=== PATIENT | female | born 1975 | race African-American/Black ===

== ENCOUNTER 2016-07-19 22:06 | Emergency (ER) | payer SELFPAY ==
[~2016-07-19 22:06] MED LIST: HYDR-1348; cephalexin; ciprofloxacin
== END 2016-07-19 22:50 | disposition left against medical advice (07) ==
LOC: ER 22:45
DX: Z04.8 Encounter for examination and observation for other specified reasons (principal); Z53.21 Procedure and treatment not carried out due to patient leaving prior to being seen by health care provider

== ENCOUNTER 2024-01-25 18:43 | Emergency (ER) | payer MEDICAID ==
[~2024-01-25] VITALS: Ht 157.5 cm; Wt 88.0 kg
[2024-01-25 18:45] VITALS: TEMP 98.5; O2SAT 99
[2024-01-25] MEDS ORDERED: IBUPROFEN 600MG TABLET PO ONE (19:15)
[2024-01-25] MEDS ORDERED: CYCLOBENZAPRINE 10MG TABLET PO ONE (19:15)
[2024-01-25 19:55] LABS: BASOPHILS % 0.6 % (0.0-2.0); EOSINOPHILS % 0.2 % (0.0-5.0); HEMATOCRIT. 39.1 % (36.0-48.0); HEMOGLOBIN. 12.9 g/dL (12.0-16.0); LYMPHOCYTES % 21.6 % (20.0-50.0); MEAN CORPUSCULAR HEMOGLOBIN 30.7 pg (28.0-32.0); MEAN CORPUSCULAR HGB CONC 32.9 g/dL (31.0-37.0); MEAN CORPUSCULAR VOLUME 93.1 fL (81.0-99.0); MEAN PLATELET VOLUME 7.3 fl (7.4-10.4); MONOCYTES % 3.6 % (2.0-8.0); PLATELET 306 x1000/uL (130-400); RED CELL DISTRIBUTION WIDTH 14.3 % (11.6-14.6); WHITE BLOOD COUNT 9.4 x1000/uL (4.5-11.0)
[2024-01-25 19:59] LABS: CHLORIDE 106 mEq/L (98-107); POTASSIUM 3.6 mEq/L (3.5-5.1); SODIUM 139 mEq/L (136-145)
[2024-01-25 20:01] LABS: CALCIUM 9.6 mg/dL (8.7-10.4); CARBON DIOXIDE 28 mEq/L (21-32)
[2024-01-25 20:06] LABS: CREATININE 0.9 mg/dL (0.6-1.0); GLUCOSE 86 mg/dL (70-105); UREA NITROGEN BLOOD 8 mg/dL (9-23)
[2024-01-25 20:08] LABS: HCG SCREEN NEGATIVE
[2024-01-25 20:24] LABS: TROPONIN I HIGH SENSITIVITY < 4 ng/L (3.0-34)
[2024-01-25] MEDS ORDERED: KETO10TA2 MT (20:48)
[2024-01-25] MEDS ORDERED: CYCL10TA21 MT (20:48)
[2024-01-25 21:07] VITALS: BP 138/73; PULSE 94; RESP 16
[2024-01-25] MEDS: IBUPROFEN 600MG TABLET PO NR (21:07)
[2024-01-25] MEDS: CYCLOBENZAPRINE 10MG TABLET PO NR (21:08)
== END 2024-01-25 21:07 | disposition home or self-care (01) ==
LOC: ER 18:43
DX: S80.12XA Contusion of left lower leg, initial encounter (principal); Z98.890 Other specified postprocedural states; Z79.899 Other long term (current) drug therapy; V43.52XA Car driver injured in collision with other type car in traffic accident, initial encounter; Y93.89 Activity, other specified; Y92.89 Other specified places as the place of occurrence of the external cause; Y99.8 Other external cause status
CPT/HCPCS: 36415; 71045; 73560; 73590; 80048; 84484; 84703; 85025; 93005; 99285